=== PATIENT | female | born 1995 | race Two or more races ===

== ENCOUNTER 2021-03-23 09:19 | Emergency (ER) | payer OTHER ==
[~2021-03-23] VITALS: Ht 154.9 cm; Wt 68.7 kg
[2021-03-23 09:48] VITALS: BP 131/75
== END 2021-03-23 10:17 ==
LOC: EMS 09:19
DX: Z11.1 Encounter for screening for respiratory tuberculosis (principal)
CPT/HCPCS: 71045; 99283